=== PATIENT | female | born 1945 | race Caucasian/White ===

== ENCOUNTER 2017-10-04 11:23 | Emergency (ER) | payer MEDICARE, OTHER ==
[~2017-10-04] VITALS: Ht 152.4 cm; Wt 71.2 kg
[~2017-10-04 11:23] MED LIST: ADULT LOW DOSE81 MG PO; ASA5UEC PO; ASPIR 8181 MG PO; ASPIRIN EC81 M1 PO; ASPIRIN325 PO; ASPIRIN81 M2 PO; AZITHROMYCIN 2250 MG PO; BYSTOLIC 5 MG5 M1; CALCIUM 600 +1 EA11 PO; CARDIZEM CD180 MG PO; CO Q-10100 MG PO; CO Q-10200 MG PO; COQ-10100 MG; COZAAR 25 MG TA25 M2 PO; COZAAR 25 MG TA25 MG PO; CRESTOR10 MG PO; CRESTOR20 MG PO; DILTIAZEM HCL30 MG PO; EFFIENT10 MG PO; ELEMENTAL CALC600 MG PO; ELIQUIS5 MG PO; ENDUR-ACIN500 MG PO; FISH OIL 1,0001 EAC5 PO; FISH OIL 1,001000 M2 PO; FLEXERIL PO; FOLIC ACID 40400 MC1 PO; FOLIC ACID0.8 MG PO; IBUPROFEN; LORAZEPAM 0.50.5 MG PO; MEDROLDOSEPACK PO; MOTION RELIEF25 MG PO; MULTAQ 400 MG400 MG PO; MULTAQ400 MG PO; MULTI VITAMIN1 EACH PO; MULTIVITAMIN PO; MULTIVITAMINS; MULTIVITAMINS PO; NEURONTIN 300300 M1 PO; NIACIN500 MG PO; NITROGLYCERIN0.4 MG SL; NORCO 5-325 TA1 EACH PO; OMEGA-31000 MG; OMEPRAZOLE40 MG PO; ONDANSETRON HCL4 M2 PO; OXYCODONE HCL 55 MG PO; PERCOCET 5-3251 EACH PO; PLAVIX 75 MG TA75 M1 PO; PLAVIX 75 MG TA75 MG PO; PREDNISONE 20 M20 MG PO; PRILOSEC40 MG PO; PRINIVIL10 MG; TUMS E.S.750 MG PO; VALIUM5 MG PO; VENTOLIN HFA 1818 GM INH; VITAMIN D1000 UNI1 PO; VITAMIN D32000 UNI1 PO; VITAMIN D400 UNI1; ZOFRAN4 MG PO; ZPAK PO
[2017-10-04 12:08] LABS: ABSOLUTE LYMPHOCYTES 1.4 thou/uL (0.8-5.3); ABSOLUTE MONOCYTES 0.4 thou/uL (0.0-1.2); BASOPHILS 0.6 %; EOSINOPHILS 0.4 %; HEMATOCRIT 43.1 % (37.0-47.0); HEMOGLOBIN 14.4 gm/dL (12.0-15.0); LYMPHOCYTES 17.5 %; MCH 28.8 pg (26.0-34.0); MCHC 33.3 g/dL (28.0-37.0); MCV 86.6 fL (80.0-100.0); MPV 8.7 fl. (7.2-11.1); NUCLEATED RBCS 0 /100WBC; PLATELET COUNT* 167 thou/uL (150-400); POLYS 76.5 %; RBC 4.98 mil/uL (4.20-5.00); RDW-CV 14.1 % (10.5-14.5); WBC 7.8 thou/uL (4.0-11.0)
[2017-10-04 12:12] LABS: ANION GAP 7 mmol/L (7-16); BUN 16 mg/dL (7-18); CHLORIDE 103 mmol/L (98-107); CO2 30 mmol/L (21-32); CREATININE 0.8 mg/dL (0.6-1.3); GLUCOSE 106 mg/dL (70-99); POTASSIUM 3.7 mmol/L (3.5-5.1); SODIUM 140 mmol/L (136-145)
[2017-10-04 12:23] LABS: ALBUMIN 3.7 g/dL (3.4-5.0); ALKALINE PHOSPHATASE 94 U/L (46-116); LIPASE 156 U/L (73-393); NT-PRO BRAIN NAT PEPTIDE 167 pg/mL (<300); SGOT 27 U/L (15-37); SGPT 45 U/L (30-65); TOTAL BILIRUBIN 0.5 mg/dL (<0.1-1.0); TOTAL PROTEIN 7.4 g/dL (6.4-8.2); TROPONIN-I LEVEL <0.06 ng/mL (<0.06)
[2017-10-04 12:42] LABS: URINE BILIRUBIN NEGATIVE (Negative); URINE BLOOD NEGATIVE (Negative); URINE CLARITY CLEAR; URINE COLOR YELLOW; URINE GLUCOSE-RANDOM NEGATIVE (Negative); URINE KETONES NEGATIVE (Negative); URINE LEUKOCYTES-REFLEX NEGATIVE (Negative); URINE NITRITE-REFLEX NEGATIVE (Negative); URINE PROTEIN NEGATIVE (Negative); URINE SPECIFIC GRAVITY 1.015 (1.005-1.030); URINE UROBILINOGEN 0.2 E.U./dl (0.2-1.0)
[2017-10-04] MEDS ORDERED: VOLTAREN GEL 1100 G2 TOP (13:29)
[2017-10-04 13:48] VITALS: BP 109/50
--- NOTE | 2017-10-04 17:43 | EKG ---
[place] [address] ELECTROCARDIOGRAM REPORT Name: KRISTIE WHEELER Room: [facility]#: [id number] Admission: 10/04/17 Attend Phys: Discharge: 10/04/17 Date of : 49 Report #: [id number] THIS REPORT FOR: //name// [facility] ED Test Date: 2017-10-04 Test Time: 11:35:05 Pat Name: KRISTIE WHEELER Department: Room: Gender: F Conductor Orchestra: Eric ELLIOTT : 1945 Requested By: Allyson Perez Order Number: [id number] MD: Ronnie Solitario Measurements Intervals [place] Rate: 60 P: CA: 208 QRS: -42 QRSD: 96 T: 102 QT: 407 QTc: 407 Interpretive Statements Atrial-paced rhythm Inferior infarct, old Lateral leads are also involved Compared to ECG 06/04/2017 16:42:47 No significant changes Electronically Signed On 10-04-2017 17:43:34 ANALYTICAL CHEMIST by Ronnie Solitario [email or web address] <ELECTRONICALLY SIGNED> By: Ronnie Solitario MD, [facility] 10/04/17 1743 1135 1135 Ronnie Solitario MD, [facility] /EPI
== END 2017-10-04 13:49 | disposition home or self-care (01) ==
LOC: M.ERS 11:23
PROVIDERS: Physician Assistant
DX: R53.1 Weakness (principal); T40.4X5A Adverse effect of other synthetic narcotics, initial encounter; I10 Essential (primary) hypertension; I25.2 Old myocardial infarction; I48.91 Unspecified atrial fibrillation; Z95.0 Presence of cardiac pacemaker; Z90.710 Acquired absence of both cervix and uterus; Z95.5 Presence of coronary angioplasty implant and graft; Z88.5 Allergy status to narcotic agent; Z88.1 Allergy status to other antibiotic agents; Z91.013 Allergy to seafood; Z87.891 Personal history of nicotine dependence; Y92.89 Other specified places as the place of occurrence of the external cause

== ENCOUNTER 2018-01-06 09:56 | Emergency (ER) | payer MEDICARE, OTHER ==
[~2018-01-06] VITALS: Ht 152.4 cm; Wt 72.1 kg
[~2018-01-06 09:56] MED LIST changes: +VOLTAREN GEL 1100 G2 TOP
[2018-01-06 11:25] VITALS: BP 148/78
== END 2018-01-06 11:32 | disposition home or self-care (01) ==
LOC: M.ERS 09:56
DX: S46.811A Strain of other muscles, fascia and tendons at shoulder and upper arm level, right arm, initial encounter (principal); I10 Essential (primary) hypertension; I48.91 Unspecified atrial fibrillation; Z88.5 Allergy status to narcotic agent; Z88.1 Allergy status to other antibiotic agents; Z91.013 Allergy to seafood; Z87.891 Personal history of nicotine dependence; V43.62XA Car passenger injured in collision with other type car in traffic accident, initial encounter; Y93.89 Activity, other specified; Y92.89 Other specified places as the place of occurrence of the external cause; Y99.8 Other external cause status

== ENCOUNTER → 2018-03-26 | Outpatient (CLI) | payer MEDICARE, OTHER ==
[~2018-03-26] MED LIST changes: +LASIX 20 MG TAB20 MG PO; +POTASSIUM20 PO
== END ==
LOC: M.RAD 15:01
DX: Z12.31 Encounter for screening mammogram for malignant neoplasm of breast (principal); I10 Essential (primary) hypertension; I48.91 Unspecified atrial fibrillation; Z87.891 Personal history of nicotine dependence

== ENCOUNTER 2018-04-11 14:34 | Inpatient (IN) | payer MEDICARE, OTHER ==
[~2018-04-11] VITALS: Ht 152.4 cm; Wt 75.8 kg
[~2018-04-11 14:34] MED LIST changes: -LASIX 20 MG TAB20 MG PO; -POTASSIUM20 PO
[2018-04-11 14:41] VITALS: BP 138/48
[2018-04-11 15:04] LABS: ABSOLUTE BASOPHILS 0.1 thou/uL (0.0-0.2); ABSOLUTE EOSINOPHILS 0.1 thou/uL (0.0-0.7); ABSOLUTE LYMPHOCYTES 1.5 thou/uL (0.8-5.3); ABSOLUTE MONOCYTES 0.5 thou/uL (0.0-1.2); ABSOLUTE NEUTROPHILS 4.6 thou/uL (1.6-8.1); BASOPHILS 0.9 %; EOSINOPHILS 0.9 %; HEMATOCRIT 43.6 % (37.0-47.0); HEMOGLOBIN 14.5 gm/dL (12.0-15.0); LYMPHOCYTES 22.8 %; MCH 28.8 pg (26.0-34.0); MCHC 33.3 g/dL (28.0-37.0); MCV 86.5 fL (80.0-100.0); MONOCYTES 6.8 %; MPV 8.3 fl. (7.2-11.1); NUCLEATED RBCS 0 /100WBC; PLATELET COUNT* 172 thou/uL (150-400); POLYS 68.6 %; RBC 5.04 mil/uL (4.20-5.00); RDW-CV 13.6 % (10.5-14.5); WBC 6.7 thou/uL (4.0-11.0)
[2018-04-11 15:11] LABS: ANION GAP 7 mmol/L (7-16); BUN 11 mg/dL (7-18); CALCIUM 9.1 mg/dL (8.5-10.1); CHLORIDE 101 mmol/L (98-107); CO2 31 mmol/L (21-32); CREATININE 0.8 mg/dL (0.6-1.3); GLUCOSE 84 mg/dL (70-99); POTASSIUM 3.4 mmol/L (3.5-5.1); SODIUM 139 mmol/L (136-145)
[2018-04-11 15:15] LABS: URINE BILIRUBIN NEGATIVE (Negative); URINE BLOOD NEGATIVE (Negative); URINE CLARITY CLEAR; URINE COLOR YELLOW; URINE GLUCOSE-RANDOM NEGATIVE (Negative); URINE KETONES NEGATIVE (Negative); URINE LEUKOCYTES-REFLEX 1+ (Negative); URINE NITRITE-REFLEX NEGATIVE (Negative); URINE PROTEIN NEGATIVE (Negative); URINE SPECIFIC GRAVITY <= 1.005 (1.005-1.030); URINE UROBILINOGEN 0.2 E.U./dl (0.2-1.0)
[2018-04-11 15:18] LABS: ALKALINE PHOSPHATASE 104 U/L (46-116); LIPASE 181 U/L (73-393); SGOT 34 U/L (15-37); SGPT 48 U/L (30-65); TOTAL BILIRUBIN 0.6 mg/dL (<0.1-1.0); TOTAL PROTEIN 7.8 g/dL (6.4-8.2); TROPONIN-I LEVEL <0.06 ng/mL (<0.06)
[2018-04-11 15:56] LABS: BACTERIA-REFLEX None Seen /HPF (None Seen); CASTS None Seen /LPF (None Seen); CRYSTALS None Seen /LPF (None Seen); MUCUS None Seen strn/LPF (None Seen); SQUAMOUS 0-3 Few /LPF (0-3); TRANSITIONAL EPITHEL CELL 0-3 Few /LPF (None Seen); URINE RBC None Seen /HPF (0-2); URINE WBC-REFLEX 0-5 Rare /HPF (0-5)
[2018-04-11 17:15] VITALS: BP 122/70
[2018-04-11 17:33] VITALS: BP 142/65
[2018-04-11] MEDS ORDERED: POTASSIUM20 PO (18:14)
[2018-04-11] MEDS ORDERED: LASIX 20 MG TAB20 MG PO (18:14)
--- NOTE | 2018-04-11 18:29 | NUR ---
RECIEVIED REPORT FROM MACHELLE RN IN ER AT 1712- DX: CHEST PAIN/SHOULDER PAIN- PT ARRIVED TO UNIT VIA CART AT 1722- SBA TO BED- WASTE COLLECTION DRIVER PLACED ORDERED, TRACING A-PACED WITH 1ST DEGREE- PT A&O X4- CONTINENT OF BOWEL AND BLADDER- LCTA, RESP EVEN AND UN-LABORED- VS 97.7 18 142/65 60 94% ON RA- ABDOMEN SOFT/ROUND/NON-TENDER, BS X4 QUADS- PT REPORTS TO BE HAVING DIARRHEA PRIOR TO ADMISSION X4- IV NOTED TO LEFT AC INTACT AND SL- UPPER AND LOWER DENTURES NOTED- ADIQUITE VISION NOTED WITH GLASSES INTACT- SKIN C/D/I- GOOD PO INTAKE NOTED WITH DINNER THIS SHIFT- PT TO BE NPO FOR CARDIO CONSULT AT MIDNIGHT- TROP'S REMAIN NEGATIVE AT THIS TIME- PT DENIES ANY PAIN AT TIME OF ADMISSION, STATES THAT PAIN HAS BEEN RELIEVIED SINCE NITRO ADMINISTRATION IN ER PRIOR TO TRANSFER- CALL LIGHT AND PERSONAL BELONGINGS WITH IN REACH- HOURLY ROUNDS IN PLACE R/T SAFETY/NEEDS- ALL NEEDS MET AT THIS TIME-WCTM
[2018-04-11 20:00] VITALS: BP 121/66
[2018-04-12] VITALS (18 sets, daily range): BP systolic 102–137; BP diastolic 55–72
--- NOTE | 2018-04-12 02:49 | NUR ---
ASSUMED PT CARE AT 1930. ASSESSMENT COMPLETED CHARTED. HAS BEEN NPO SINCE MIDNIGHT FOR CARDIOLOGY CONSULT IN THE MORNING. PT STATES SHE HAS SOME SHOULDER PAIN AND IS REFUSING PAIN MEDICATION FOR IT STATING THAT IT IS JUST BOTHERSOME AND NO NEED TO TREAT RIGHT NOW. PT IS RESTING IN BED AT THIS TIME WITH SR ON THE DEHYDROGENATION OPERATOR. VSS. WILL CONTINUE TO MONITOR.
[2018-04-12 05:23] LABS: ABSOLUTE BASOPHILS 0.1 thou/uL (0.0-0.2); ABSOLUTE EOSINOPHILS 0.1 thou/uL (0.0-0.7); ABSOLUTE LYMPHOCYTES 1.7 thou/uL (0.8-5.3); ABSOLUTE MONOCYTES 0.5 thou/uL (0.0-1.2); ABSOLUTE NEUTROPHILS 3.1 thou/uL (1.6-8.1); EOSINOPHILS 2.1 %; HEMATOCRIT 43.1 % (37.0-47.0); HEMOGLOBIN 14.2 gm/dL (12.0-15.0); LYMPHOCYTES 30.8 %; MCH 28.8 pg (26.0-34.0); MCHC 32.9 g/dL (28.0-37.0); MCV 87.3 fL (80.0-100.0); MONOCYTES 9.2 %; MPV 8.9 fl. (7.2-11.1); NUCLEATED RBCS 0 /100WBC; PLATELET COUNT* 172 thou/uL (150-400); POLYS 56.9 %; RBC 4.93 mil/uL (4.20-5.00); RDW-CV 13.5 % (10.5-14.5); WBC 5.5 thou/uL (4.0-11.0)
[2018-04-12 06:13] LABS: CREATININE 0.8 mg/dL (0.6-1.3)
[2018-04-12 06:14] LABS: POTASSIUM 4.7 mmol/L (3.5-5.1)
--- NOTE | 2018-04-12 09:20 | NUR ---
ASSUMED CARE OF PT THIS AM AROUND 07- PLUGGER IN PLACE ORDERED, A-PACED WITH NOTED PACEMAKER- UPON ASSESSMENT PT NOTED TO BE RESTING IN BED, WATCHING TV, AT SIDE- PT A&O X4- CONTINENT OF BOWEL AND BLADDER- UP AD-KENNY IN ROOM, STEADY GAIT NOTED- LCTA, RESP EVEN AND UN-LABORED- VSS, O2 SAT 94% ON RA- NO C/O DYSPNEA NOTED- ABDOMEN SOFT/ROUND/NON-TENDER, BS X4 QUADS- LAST BM REPORTED 04/11/18 IN AM- NO REPORTS OF DIARRHEA/NAUSEA SINCE ADMISSION-PT CURRNELTY NPO PENDING CARDIOLOGY CONSULT-PT REPORTS PAIN TO RIGHT SHOULDER 12/05 THIS AM, BUT DENEIS NEED FOR PAIN MEDICATIONS AT THIS TIME- CALL LIGHT AND PERSONAL BELONGINGS WITH IN REACH- HOURLY ROUNDS IN PLACE R/T SAFETY/NEEDS- ALL NEEDS MET AT THIS TIME-WCTM
[2018-04-12 10:35] LABS: CHOLESTEROL 115 mg/dL (<200); HDL CHOLESTEROL 38 mg/dL (>40); LDL CHOLESTEROL 61 mg/dL (<100); TRIGLYCERIDE 84 mg/dL (<150); VLDL 17 mg/dL (<40)
[2018-04-12 10:37] LABS: SERUM ASSESSMENT Clear
[2018-04-12 10:40] LABS: APTT 30.8 Seconds (25.0-31.3); INR 1.2; PROTIME 11.3 Seconds (9.20-11.50)
--- NOTE | 2018-04-12 10:53 | EKG ---
[place] [address] ELECTROCARDIOGRAM REPORT Name: KRISTIE WHEELER Room: [address] M[address]R.#: [id number] Admission: 04/11/18 Attend Phys: Anuj Robledo MD Discharge: Date of : 49 Report #: [id number] THIS REPORT FOR: //name// [facility] ED Test Date: 2018-04-11 Test Time: 15:05:32 Pat Name: KRISTIE WHEELER Department: Room: [facility] Gender: F Brinell Tester: : 1945 Requested By: Jessica Sharp Order Number: [id number] MD: Ronnie Solitario Measurements Intervals [place] Rate: 60 P: SC: 179 QRS: -37 QRSD: 105 T: 88 QT: 476 QTc: 476 Interpretive Statements Atrial-paced complexes Abnormal R-wave progression, late transition consider Inferior infarct, old nonspecific st changes Compared to ECG 10/04/2017 11:35:05 no change Electronically Signed On 04-12-2018 10:53:21 CDT by Ronnie Solitario [email or web address] <ELECTRONICALLY SIGNED> By: Ronnie Solitario MD, [facility] 04/12/18 1053 1505 1505 Ronnie Solitario MD, [facility] /EPI
--- NOTE | 2018-04-12 14:23 | NUR ---
Pt is A&O. Resides at home with her . Independent. No DME. No hx of HH or SNF. Goal is home. Pt had cath today, anticipate dc tomorrow. Following.
--- NOTE | 2018-04-12 18:35 | NUR ---
PT VERONICA RESTING IN BED, WATCHING TV; AT SIDE VISITING- CATH COMPLETED THIS SHIFT PRESCIBED WITH NO INTERVENTIONS NOTED- ASSESS NOTED TO RIGHT WRIST WITH WRIST BAND IN PLACE WITH 10CC REPORTED- PT RETURNED FROM INSURANCE UNDERWRITER SALES AROUND 1353- VS 97.3 18 116/58 59 92% ON RA- VS PER PROTOCOL INITIATED IN COMPLETED PER PROTOCOL-DIET RESTARTED WITH GOOD PO INTAKE NOTED WITH DINNER- ORDERS RECIEVED PER FOR OKAY TO D/C TODAY IF OKAY WITH CARDIOLOGY- LACY CASE HERE THIS AFTERNOON WITH VERBAL INSTRUCTIONS RECIEVED FOR OKAY TO D/C PAST VS AND WRIST BAND REMOVAL THIS SHIFT- IV TO LEFT AC D/C'D AROUND 1745 ALONG WITH FLUIDS- SALES EXECUTIVE D/C WELL- VS REMAINED STABLE- UPON COMPLETION ON AIR REMOVED FROM WRIST BAND AND GOING TO REMOVE FOR DRESSING TO BE APPLIED AROUND 1815 WRIST NOTED TO DEVELOP HEMATOMA TO SITE, WRIST BAND REAPPLIED WITH 8CC OF AIR PLACED- CARDIOLOGY SERVICES CALLED FOR SALES ASSISTANT ENTERTAINMENT AND MEDIA TO RETURN PHONE CALL AROUND 1820-D/C VERONICA ON HOLD AWAITING RETURN PHONE CALL- ALL NEEDS MET AT THIS TIME- CALL LIGHT WITH IN REACH- ALL NEEDS MET AT THIS TIME-[facility]
[2018-04-13] VITALS: BP 105/64
[2018-04-13 04:00] VITALS: BP 113/68
[2018-04-13 04:56] LABS: HEMATOCRIT 44.7 % (37.0-47.0); HEMOGLOBIN 14.8 gm/dL (12.0-15.0)
[2018-04-13 08:15] VITALS: BP 109/58
--- NOTE | 2018-04-13 09:00 | NUR ---
RIGHT RADIAL SITE BRUISED AND SLIGHTLY SWOLLEN. PULSES +. NO BLEEDING. NO THRILL OR BRUIT
[2018-04-13 11:50] VITALS: BP 111/52
[2018-04-13 11:52] VITALS: BP 111/52
--- NOTE | 2018-04-13 17:42 | CARD ---
[address] [address] CARDIAC CATH REPORT Name: KRISTIE WHEELER Room: [address]#: [id number] Admission: 04/12/18 Attend Phys: Anuj Robledo MD Discharge: 04/13/18 Date of : 49 Report #: [id number] THIS REPORT FOR: //name// APPROVED REPORT Study performed: 04/12/2018 11:55:21 Patient Details Patient Status: Out-Patient Room #: The patient is a 72 year-old female Event Personnel Ghassan Mccabe Crusher Setter, Isi eDnt RN Medical Terminologist, David Stahl (R) Monitor, Yara Green RTR Scrub Procedures Performed Left heart catheterization and coronary angiography Indication Coronary artery disease with chest pain consistent with angina Risk Factors Dysplipidemia , Family History, Coronary Artery Disease Previous Procedures/Diagnoses Previous PCI Admission/Lab Medications/Medications given during procedure Aspirin, Lipid Lowering Agents, Beta Vineet Procedure Narrative The patient was brought electively to the Cardiac Catheterization Laboratory and was prepped and draped in a sterile manner. The right wrist was infiltrated with 1% Lidocaine subcutaneous anesthesia. A Slender Glidesheath sheath was inserted into the . Coronary angiography was performed using coronary diagnostic catheters. The right coronary system was accessed and visualized with a DCR: [place] 4.0 5fr catheter. The left coronary system was accessed and visualized with a LCB 5fr catheter. The left ventricle was accessed and visualized with a LCB 5fr catheter. The patient tolerated the procedure well and there were no complications associated with the procedure. [address] [address] CARDIAC CATH REPORT Name: KRISTIE WHEELER Room: [address]#: [id number] Admission: 04/12/18 Attend Phys: Anuj Robledo MD Discharge: 04/13/18 Date of : 49 Report #: [id number] Intraoperative Conscious Sedation Sedation start time: 1245 Case end Time: 1336 Fentanyl 50 mcg Versed 2 mg Fluoro Time: 22.6 minutes Dose: DAP [id number] cGycm2 2151 mGy Contrast Type and Amount: Omnipaque 130 ml Diagnostic Cath Left Main 20% ostial narrowing. Remainder the vessel is free of significant disease LAD Proximally free of significant disease. Stents in the mid LAD are widely patent. Diagonal 1 10% plaquing proximally. Circumflex Widely patent stents in the proximal and mid circumflex. OM1 Alecia branch vessel that is free of significant disease. OM2 Previous significant disease. Right Coronary 30% narrowing proximally. Mid vessel is free of significant disease. There is a 20% narrowing distally. R PDA 30% narrowing proximally. There is a widely patent stent in the mid vessel. RPLV Previous significant disease. Hemodynamics The aortic pressure is 80/45 mmHg with a mean of 55 mmHg. The left ventricular pressure is 117/5 mmHg with a mean of mmHg. The left ventricular end diastolic pressure is 10 mmHg. Conclusion 1. Three-vessel coronary artery disease as outlined above. 2. Widely patent stents as outlined above. 3. No hemodynamically significant stenoses noted at this time. 4. Normal left ventricular end-diastolic pressure. Recommendations 1. Continue aggressive risk factor modification and medical management. <ELECTRONICALLY SIGNED> By: Ghassan Mccabe MD, FACC 04/13/181741 41 41Michaefacundo Mccabe MD, FACC /INF
== END 2018-04-13 14:09 | disposition home or self-care (01) | DRG 287 ==
LOC: M.ERS 14:34 → M.2W 16:21 → M.TBA-ER 16:21 → M.2W 17:25
PROVIDERS: Internal Medicine Cardiovascular Disease; Nurse Practitioner Family; ADMIT Internal Medicine
PROC: 4A023N7 Measurement of Cardiac Sampling and Pressure, Left Heart, Percutaneous Approach (ICD-10-PCS; principal; 2018-04-13)
PROC: B2111ZZ Fluoroscopy of Multiple Coronary Arteries using Low Osmolar Contrast (ICD-10-PCS; principal; 2018-04-13)
DX: I25.119 Atherosclerotic heart disease of native coronary artery with unspecified angina pectoris (principal); E78.1 Pure hyperglyceridemia; I10 Essential (primary) hypertension; M19.90 Unspecified osteoarthritis, unspecified site; I48.0 Paroxysmal atrial fibrillation; I49.5 Sick sinus syndrome; K21.9 Gastro-esophageal reflux disease without esophagitis; E78.5 Hyperlipidemia, unspecified; I25.2 Old myocardial infarction; Z95.5 Presence of coronary angioplasty implant and graft; Z95.0 Presence of cardiac pacemaker; Z90.49 Acquired absence of other specified parts of digestive tract; Z90.710 Acquired absence of both cervix and uterus; Z87.891 Personal history of nicotine dependence; Z79.01 Long term (current) use of anticoagulants; Z79.82 Long term (current) use of aspirin; Z79.899 Other long term (current) drug therapy; Z88.8 Allergy status to other drugs, medicaments and biological substances; Z88.1 Allergy status to other antibiotic agents; Z88.5 Allergy status to narcotic agent; Z91.013 Allergy to seafood

== ENCOUNTER → 2018-05-23 | Outpatient (CLI) | payer MEDICARE, OTHER ==
[~2018-05-23] MED LIST changes: +LASIX 20 MG TAB20 MG PO; +POTASSIUM20 PO
--- NOTE | 2018-05-24 18:13 | SLEEP ---
[address] [address] SLEEP STUDY REPORT Name: KRISTIE WHEELER Room: [facility]#: [id number] Admission: 05/23/18 Attend Phys: Cici Brock Discharge: Date of : 49 Report #: [id number] THIS REPORT FOR: //name// CC: SHAUNA Weber This study has been reviewed in its entirety by a board certified sleep specialist DATE OF SERVICE: 05/23/2018 ATTENDING PHYSICIAN: Shauna Licona DO. The patient is 72 years old who weighs 161 pounds and is 60 inches tall with a BMI of 31.4. The patient underwent a split night study performed at [facility]. During the night study, the patient spent 443 minutes in bed and slept for 241 minutes with a sleep efficiency of 54%, which is low. Overall, sleep architecture showed normal stage 1 sleep as well as normal stage 2 sleep, increased slow wave sleep, which was 30% of the total sleep time and normal REM sleep. The patient's sleep latency was 42 minutes, which was prolonged with a REM latency of 99.4 minutes. During the initial diagnostic portion of the study, the patient slept for 137 minutes. During that time, the patient had no central or mixed apneas. There were 4 obstructive apneas and 26 hypopneas. The patient's apnea hypopnea index was 13 per hour with a REM index of 54 per hour and a supine index of 13 per hour. EKG monitoring revealed normal sinus rhythm. Average heart rate of 70 beats per minute with a maximum of 77 beats per minute. PLMS seen at an index of 9.2 per hour and 5.7 per hour caused EEG arousals. During the night, diagnostic portion of the study, oximetry data revealed an average oxygen saturation of 89% with a lowest of 75%. 47 minutes were spent at oxygen saturation less than 88%. The patient met the criteria for CPAP initiation. It was started at 4 cm water and titrated up to 14 cm water. At final pressure of 14 cm water, the patient had very limited sleep of only 3.3 minutes. As a result, there were 2 hypopneas, which exaggerated the AHI to 36 per hour. The patient did better while on CPAP, at 7 cm water, the patient had 41 minutes of sleep , [place] [address] SLEEP STUDY REPORT Name: NEETU WHEELEREpifanio Paul Room: [facility]#: [id number] Admission: 05/23/18 Attend Phys: Cici Brock Discharge: Date of : 49 Report #: [id number] sleep as well and AHI was 4.3 per hour. No supine sleep. However, it is difficult to assess optimum CPAP pressure due to a limited time with CPAP titration and specially when higher CPAP pressures were used. . I would recommend the patient to return to the sleep lab for CPAP titration study. Alternate treatment option would be to place the patient on auto CPAP and have a followup with a download information. IMPRESSION: 1. Mild sleep apnea-hypopnea syndrome with worsening during REM sleep. Total AHI at 13 per hour with a REM AHI of 54 per hour. 2. Nocturnal hypoxia secondary to obstructive sleep apnea, which did improve with CPAP. 3. Mild PLMS at an index of 9 per hour and 5.7 per hour caused EEG arousals. RECOMMENDATIONS: 1. Optimum CPAP pressure was not achieved on this split night study due to insufficient sleep. The patient can be placed on auto CPAP with a minimum pressure of 7 cm water and the maximum pressure of 16 cm water. The patient can have download information in 30 days and any adjustments can be made at that time. Alternate treatment option would be to have the patient return to the sleep lab for a full night CPAP titration study. 2. Avoid BANKRUPTCY PARALEGAL depressants. 3. Cautioned regarding driving until symptoms of sleep apnea resolve with the above recommendations. 4. Weight loss is advised. <ELECTRONICALLY SIGNED> By: Maurilio Healy MD 05/24/18 1813 1457 1538Alarry Healy MD /yasmin
== END ==
LOC: M.SLEEPLAB 19:54
DX: G47.33 Obstructive sleep apnea (adult) (pediatric) (principal); R09.02 Hypoxemia

== ENCOUNTER 2018-08-02 19:37 | Emergency (ER) | payer MEDICARE, OTHER ==
[~2018-08-02] VITALS: Ht 152.4 cm; Wt 72.6 kg
[2018-08-02 20:04] LABS: URINE BILIRUBIN NEGATIVE (Negative); URINE BLOOD NEGATIVE (Negative); URINE CLARITY CLEAR; URINE COLOR YELLOW; URINE GLUCOSE-RANDOM NEGATIVE (Negative); URINE KETONES NEGATIVE (Negative); URINE LEUKOCYTES-REFLEX NEGATIVE (Negative); URINE NITRITE-REFLEX NEGATIVE (Negative); URINE PROTEIN NEGATIVE (Negative); URINE SPECIFIC GRAVITY <= 1.005 (1.005-1.030); URINE UROBILINOGEN 0.2 E.U./dl (0.2-1.0)
[2018-08-02] MEDS ORDERED: PREDNISONE 20 M20 MG PO (20:14)
[2018-08-02] MEDS ORDERED: NORCO 5-325 TA1 EACH PO (20:15)
[2018-08-02 20:43] VITALS: BP 155/74
== END 2018-08-02 20:44 | disposition home or self-care (01) ==
LOC: M.ERS 19:37
PROVIDERS: Physician Assistant
DX: M54.5 Low back pain (principal); I48.91 Unspecified atrial fibrillation; I10 Essential (primary) hypertension; Z87.891 Personal history of nicotine dependence; Z88.1 Allergy status to other antibiotic agents; Z88.5 Allergy status to narcotic agent; Z88.6 Allergy status to analgesic agent; Z91.013 Allergy to seafood; Z90.710 Acquired absence of both cervix and uterus; Z95.5 Presence of coronary angioplasty implant and graft

== ENCOUNTER 2018-11-06 17:42 | Emergency (ER) | payer MEDICARE, OTHER ==
[~2018-11-06] VITALS: Ht 152.4 cm; Wt 72.6 kg
[~2018-11-06 17:42] MED LIST changes: -ACID REDUCER20 M1 PO; -CARDIZEM CD120 MG PO; -COZAAR 25 MG TA25 M1 PO; -ERYTHROMYCIN E3.5 G3 OPHTHALMIC; -FOLIC ACID1 MG PO; -NITROGLYCERIN0.4 MG SUBLING; -UNICOMPLEX M TA1 TA1 PO; -VITAMIN D3400 UNIT PO
[2018-11-06 17:48] VITALS: BP 143/61
[2018-11-06] MEDS ORDERED: ERYTHROMYCIN E3.5 G3 OPHTHALMIC ×3 (17:57→20:11)
[2018-11-06] MEDS ORDERED: ASPIR 8181 MG PO (18:41)
[2018-11-06] MEDS ORDERED: CARDIZEM CD120 MG PO (18:41)
[2018-11-06] MEDS ORDERED: ELIQUIS5 MG PO (18:41)
[2018-11-06] MEDS ORDERED: CO Q-10100 MG PO (18:41)
[2018-11-06] MEDS ORDERED: MULTAQ 400 MG400 MG PO (18:42)
[2018-11-06] MEDS ORDERED: FOLIC ACID1 MG PO (18:42)
[2018-11-06] MEDS ORDERED: FISH OIL 1,001000 M2 PO (18:42)
[2018-11-06] MEDS ORDERED: COZAAR 25 MG TA25 M1 PO (18:43)
[2018-11-06] MEDS ORDERED: NITROGLYCERIN0.4 MG SUBLING (18:43)
[2018-11-06] MEDS ORDERED: LASIX 20 MG TAB20 MG PO (18:43)
[2018-11-06] MEDS ORDERED: UNICOMPLEX M TA1 TA1 PO (18:43)
[2018-11-06] MEDS ORDERED: ACID REDUCER20 M1 PO (18:44)
[2018-11-06] MEDS ORDERED: POTASSIUM20 PO (18:44)
[2018-11-06] MEDS ORDERED: VITAMIN D3400 UNIT PO (18:45)
[2018-11-06] MEDS ORDERED: CRESTOR20 MG PO (18:45)
== END 2018-11-06 18:18 | disposition home or self-care (01) ==
LOC: M.ERS 17:42
DX: S05.02XA Injury of conjunctiva and corneal abrasion without foreign body, left eye, initial encounter (principal); I10 Essential (primary) hypertension; I48.91 Unspecified atrial fibrillation; Z87.891 Personal history of nicotine dependence; Z88.1 Allergy status to other antibiotic agents; Z88.5 Allergy status to narcotic agent; Z91.013 Allergy to seafood; Z90.710 Acquired absence of both cervix and uterus; Z95.5 Presence of coronary angioplasty implant and graft; X58.XXXA Exposure to other specified factors, initial encounter; Y93.89 Activity, other specified; Y92.89 Other specified places as the place of occurrence of the external cause; Y99.8 Other external cause status

== ENCOUNTER → 2018-11-06 | Outpatient (CLI) | payer MEDICARE, OTHER ==
[~2018-11-06] MED LIST changes: +ACID REDUCER20 M1 PO; +CARDIZEM CD120 MG PO; +COZAAR 25 MG TA25 M1 PO; +ERYTHROMYCIN E3.5 G3 OPHTHALMIC; +FOLIC ACID1 MG PO; +NITROGLYCERIN0.4 MG SUBLING; +UNICOMPLEX M TA1 TA1 PO; +VITAMIN D3400 UNIT PO
== END ==
LOC: M.MRI 07:48
DX: S76.012A Strain of muscle, fascia and tendon of left hip, initial encounter (principal); X58.XXXA Exposure to other specified factors, initial encounter; Y93.89 Activity, other specified; Y92.89 Other specified places as the place of occurrence of the external cause; Y99.8 Other external cause status; Z90.710 Acquired absence of both cervix and uterus

== ENCOUNTER 2018-11-29 05:10 | Emergency (ER) | payer MEDICARE, OTHER ==
[~2018-11-29] VITALS: Ht 152.4 cm; Wt 72.6 kg
--- NOTE | ~2018-11-29 | CON ---
[address] [address] CONSULTATION Name: NEETU WHEELERN BARRERA Room: [facility] Joann#: [id number] Admission: 11/29/18 Attend Phys: Discharge: 11/29/18 Date of : 49 Report #: [id number] THIS REPORT FOR: //name// CC: Sal Carty HISTORY OF PRESENT ILLNESS: This is a pleasant 73-year-old female with past medical history significant for hyperlipidemia, hypertension, AFib, coronary artery disease, who is presenting for evaluation of acute onset dysphagia. The patient attempted to swallow all her pills today in the morning, but appears to have had the pill stuck in her throat. The patient denies any difficulty breathing and denies similar episodes in the past. She denies any pain on swallowing, recent hematemesis, hematochezia or weight loss. PAST MEDICAL HISTORY: As mentioned above, hyperlipidemia, coronary artery disease, atrial fibrillation, and hypertension. PAST SURGICAL HISTORY: Hysterectomy 12 years back, cholecystectomy 40 years back. SOCIAL HISTORY: The patient denies smoking, alcohol or recreational drug use. FAMILY HISTORY: Negative for colon or gastric or esophageal cancer. REVIEW OF SYSTEMS: Negative except for what was mentioned in the HPI. PHYSICAL EXAMINATION: VITAL SIGNS: Temperature 36.6, pulse rate 61, respirations 16, blood pressure 104/66, pulse ox 97. GENERAL: The patient is alert, awake, oriented x 3. HEENT: Pupils are equal, round, reactive to light and accommodation. Mucous membranes are moist. NECK: There is no congestion. LUNGS: Clear to auscultation bilaterally. CARDIOVASCULAR: Rate and rhythm irregular; S1, S2 absent. ABDOMEN: Soft. There is no distention, guarding or rigidity. EXTREMITIES: Warm, well perfused. There is no edema. SKIN: Warm and dry. LABORATORY DATA: Hemoglobin 14.3, hematocrit 43.1, platelet count 156. WBC count 5.4. Sodium 141, potassium 4.3, chloride 104, bicarbonate 13, creatinine 0.9, total bilirubin 0.6, AST 32, ALT 42, alkaline phosphatase 105. ASSESSMENT AND PLAN: Pleasant 73-year-old female with past medical history of atrial fibrillation, hypertension, hyperlipidemia, is presenting for evaluation of acute onset dysphagia and food impaction. I will perform [place] [address] CONSULTATION Name: KRISTIE WHEELER Room: [facility] Joann#: [id number] Admission: 11/29/18 Attend Phys: Discharge: 11/29/18 Date of : 49 Report #: [id number] cause of this and further recommendations will be based on the results of the EGD. Thank you for this consult. By: 1511 0612Magnus Carty MD /yamsin
[~2018-11-29 05:10] MED LIST changes: +ACID REDUCER20 M1 PO; +CARDIZEM CD120 MG PO; +COZAAR 25 MG TA25 M1 PO; +ERYTHROMYCIN E3.5 G3 OPHTHALMIC; +FOLIC ACID1 MG PO; +NITROGLYCERIN0.4 MG SUBLING; +UNICOMPLEX M TA1 TA1 PO; +VITAMIN D3400 UNIT PO
[2018-11-29] MEDS ORDERED: NEURONTIN 300300 M1 PO (05:18)
[2018-11-29 05:43] LABS: ABSOLUTE BASOPHILS 0.1 thou/uL (0.0-0.2); ABSOLUTE EOSINOPHILS 0.1 thou/uL (0.0-0.7); ABSOLUTE LYMPHOCYTES 1.5 thou/uL (0.8-5.3); ABSOLUTE MONOCYTES 0.4 thou/uL (0.0-1.2); ABSOLUTE NEUTROPHILS 3.4 thou/uL (1.6-8.1); BASOPHILS 1.1 %; HEMATOCRIT 43.1 % (37.0-47.0); HEMOGLOBIN 14.3 gm/dL (12.0-15.0); LYMPHOCYTES 27.1 %; MCH 29.1 pg (26.0-34.0); MCHC 33.3 g/dL (28.0-37.0); MCV 87.4 fL (80.0-100.0); MONOCYTES 6.8 %; MPV 8.5 fl. (7.2-11.1); NUCLEATED RBCS 0 /100WBC; PLATELET COUNT* 156 thou/uL (150-400); RBC 4.93 mil/uL (4.20-5.00); RDW-CV 14.3 % (10.5-14.5); WBC 5.4 thou/uL (4.0-11.0)
[2018-11-29 05:53] LABS: APTT 28.4 Seconds (25.0-31.3); INR 1.1; PROTIME 10.9 Seconds (9.20-11.50)
[2018-11-29 05:56] LABS: ALBUMIN 3.7 g/dL (3.4-5.0); CALCIUM 9.3 mg/dL (8.5-10.1); CREATININE 0.9 mg/dL (0.6-1.3); POTASSIUM 4.3 mmol/L (3.5-5.1); TOTAL BILIRUBIN 0.6 mg/dL (<0.1-1.0); TOTAL PROTEIN 7.5 g/dL (6.4-8.2)
[2018-11-29 11:23] VITALS: BP 104/66
== END 2018-11-29 11:25 | disposition still patient (30) ==
LOC: M.ERS 05:10 → M.SUR 05:10 → M.ERS 11:25
PROVIDERS: Family Medicine
DX: T18.198A Other foreign object in esophagus causing other injury, initial encounter (principal); R11.10 Vomiting, unspecified; I48.91 Unspecified atrial fibrillation; Z90.710 Acquired absence of both cervix and uterus; Z95.5 Presence of coronary angioplasty implant and graft; Z88.5 Allergy status to narcotic agent; Z88.1 Allergy status to other antibiotic agents; Z91.013 Allergy to seafood; Z87.891 Personal history of nicotine dependence; X58.XXXA Exposure to other specified factors, initial encounter; Y93.89 Activity, other specified; Y92.89 Other specified places as the place of occurrence of the external cause; Y99.8 Other external cause status

== ENCOUNTER → 2019-01-09 | Outpatient (CLI) | payer MEDICARE, OTHER | LOC: M.MRI 12:55 | DX: M47.27 Other spondylosis with radiculopathy, lumbosacral region (principal); M51.16 Intervertebral disc disorders with radiculopathy, lumbar region; M48.061 Spinal stenosis, lumbar region without neurogenic claudication; M25.78 Osteophyte, vertebrae; N28.1 Cyst of kidney, acquired ==

== ENCOUNTER → 2019-06-13 | Outpatient (CLI) | payer MEDICARE, OTHER | LOC: M.RAD 13:31 | DX: Z12.31 Encounter for screening mammogram for malignant neoplasm of breast (principal) ==

== ENCOUNTER → 2019-07-15 | Outpatient (CLI) | payer MEDICARE, OTHER | LOC: M.LAB 13:28 | DX: I48.0 Paroxysmal atrial fibrillation (principal) ==

== ENCOUNTER → 2019-07-22 | Outpatient (CLI) | payer MEDICARE, OTHER ==
--- NOTE | 2019-07-22 15:00 | 2DMMODE ---
[place] [address] 2 D/M-MODE ECHOCARDIOGRAM Name: KRISTIE WHEELER Room: [facility]#: [id number] Admission: 07/22/19 Attend Phys: Palak Perez Discharge: Date of : 49 Date of Service: 07/22/19 1459 Report #: [id number] THIS REPORT FOR: //name// APPROVED REPORT Study performed: 07/22/2019 14:04:40 EXAM: Comprehensive 2D, Doppler, and color-flow Echocardiogram Patient Location: Out-Patient BSA: 1.69 HR: 61 bpm BP: 120/60 mmHg Other Information Study Quality: Good Indications Atrial Fibrillation 2D Dimensions IVSd: 11.70 (7-11mm) LVOT Diam: 20.34 (18-24mm) LVDd: 45.14 mm PWd: 9.14 (7-11mm) Ascending Ao: 30.22 (22-36mm) LVDs: 24.05 (25-40mm) Aortic Root: 29.71 mm Volumes Left Atrial Volume (Systole) LA ESV Index: 23.60 mL/m2 Aortic Valve AoV Peak Tao.: 1.16 m/s AO Peak Gr.: 5.39 mmHg LVOT Max P.36 mmHg AO Mean Gr.: 2.82 mmHg LVOT Mean P.26 mmHg LVOT Max V: 0.77 m/s AO V2 VTI: 25.65 cm LVOT Mean V: 0.53 m/s RYDER (VTI): 2.50 cm2 LVOT V1 VTI: 19.74 cm Mitral Valve E/A Ratio: 0.88 MV Decel. Time: 196.83 ms MV E Max Tao.: 0.52 m/s MV PHT: 57.08 ms MVA (PHT): 3.85 [place]2 [place] [address] 2 D/M-MODE ECHOCARDIOGRAM Name: KRISTIE WHEELER Room: [facility]#: [id number] Admission: 07/22/19 Attend Phys: Palak Perez Discharge: Date of : 49 Date of Service: 07/22/19 1459 Report #: [id number] TDI E/Lateral E': 4.73 E/Medial E': 5.78 Medial E' Tao.: 0.09 m/s Lateral E' Tao.: 0.11 m/s Pulmonary Valve PV Peak Tao.: 0.83 m/s PV Peak Gr.: 2.76 mmHg Tricuspid Valve RAP Estimate: 5.00 mmHg TR Peak Gr.: 29.18 mmHg RVSP: 34.18 mmHg PA Pressure: 34.18 mmHg Left Ventricle The left ventricle is normal size. There is normal LV segmental wall motion. There is normal left ventricular wall thickness. Left ventricular systolic function is normal. The left ventricular ejection fraction is within the normal range. LVEF is 55-60%. Grade I - abnormal relaxation pattern. Right Ventricle The right ventricle is normal size. The right ventricular systolic function is normal. Pacemaker lead is present in the right ventricle. Atria The left atrium size is normal. Pacemaker lead is present in the right atrium. Aortic Valve The Aortic valve is sclerotic. No aortic regurgitation is present. There is no aortic valvular stenosis. Mitral Valve The mitral valve is normal in structure. Mild mitral regurgitation. No evidence of mitral valve stenosis. Tricuspid Valve The tricuspid valve is normal in structure. Mild tricuspid regurgitation. estimated pa pressure 40 mm Hg Pulmonic Valve The pulmonary valve is normal in structure. There is no pulmonic valvular regurgitation[place] [address] 2 D/M-MODE ECHOCARDIOGRAM Name: KRISTIE WHEELER Room: [facility]#: [id number] Admission: 07/22/19 Attend Phys: Palak Perez Discharge: Date of : 49 Date of Service: 07/22/19 1459 Report #: [id number] The aortic root is normal in size. IVC is normal in size and collapses >50% with inspiration. Pericardium There is no pericardial effusion. <Conclusion> LVEF is 55-60%. The Aortic valve is sclerotic. <ELECTRONICALLY SIGNED> By: Ronnie Solitario MD, [facility] 07/22/19 1459 145 145 Ronnie Solitario MD, FACC /INF
== END ==
LOC: M.CRD 13:35
DX: I08.1 Rheumatic disorders of both mitral and tricuspid valves (principal); I48.0 Paroxysmal atrial fibrillation

== ENCOUNTER → 2019-08-02 | Outpatient (CLI) | payer MEDICARE, OTHER ==
[2019-08-02 10:19] LABS: HEMATOCRIT 46.5 % (37.0-47.0); HEMOGLOBIN 15.6 gm/dL (12.0-15.0); MCH 28.6 pg (26.0-34.0); MCHC 33.5 g/dL (28.0-37.0); MCV 85.2 fL (80.0-100.0); MPV 8.3 fl. (7.2-11.1); RBC 5.46 mil/uL (4.20-5.00); RDW-CV 14.7 % (10.5-14.5); WBC 6.4 thou/uL (4.0-11.0)
[2019-08-02 10:38] LABS: ALBUMIN 4.1 g/dL (3.4-5.0); CALCIUM 9.8 mg/dL (8.5-10.1); CREATININE 0.8 mg/dL (0.6-1.3); POTASSIUM 4.5 mmol/L (3.5-5.1); TOTAL BILIRUBIN 0.7 mg/dL (<0.1-1.0); TOTAL PROTEIN 8.1 g/dL (6.4-8.2)
== END ==
LOC: M.LAB 07-31 16:55
PROVIDERS: Internal Medicine Cardiovascular Disease
DX: J98.11 Atelectasis (principal); I48.91 Unspecified atrial fibrillation; I25.10 Atherosclerotic heart disease of native coronary artery without angina pectoris; I11.9 Hypertensive heart disease without heart failure

== ENCOUNTER → 2019-08-15 | Outpatient (CLI) | payer MEDICARE, OTHER ==
[2019-08-15 09:44] VITALS: BP 145/72
[2019-08-15 09:49] VITALS: BP 149/74
[2019-08-15 09:54] VITALS: BP 164/74
[2019-08-15 09:57] VITALS: BP 139/76
[2019-08-15 10:01] VITALS: BP 133/64
--- NOTE | 2019-08-15 12:43 | TEE ---
[place] [address] TRANSESOPHAGEAL ECHOCARDIOGRAM Name: SUMMERKRISTIE L Room: [facility]#: [id number] Admission: 08/15/19 Attend Phys: Ghassan Mccabe, Discharge: Date of : 49 Date of Service: 08/15/19 1243 Report #: [id number] THIS REPORT FOR: //name// APPROVED REPORT Study performed: 08/15/2019 09:34:07 EXAM: Comprehensive 2D, Doppler, and color-flow Echocardiogram Patient Location: Out-Patient Status: routine BSA: 1.70 HR: 66 bpm BP: 135/81 mmHg Rhythm: Atrial Fibrillation Other Information Study Quality: Good Indications Atrial Fibrillation Pre-ablation Echo Enhancing Agent Indication: Rule out Shunt Agent(s) / Amount(s) Used: Agitated Saline 10 cc Procedure After obtaining informed consent, patient underwent transesophageal echo in the [employer]. Type of Sedation : Conscious Sedation Sedation was administered by Karina Kingston RN. Sedation start time: 950 Case end Time: 1001 Sedation was achieved intravenously with: Versed (3) Fentanyl (75) Transesophageal probe was inserted and advanced into esophagus without difficulty by Ghassan Mccabe MD, FACC. Echo enhancement indication: R/O Septal defect. Echo enhancement agent administered: Agitated Saline The CHANDANA was performed without complications. Throughout the procedure, the blood pressure, pulse oximetry, cardiac rhythm, and rate were monitored. The patient tolerated the procedure without adverse effects. Recovery from conscious sedation was uneventful [place] [address] TRANSESOPHAGEAL ECHOCARDIOGRAM Name: KRISTIE WHEELER Room: [facility]#: [id number] Admission: 08/15/19 Attend Phys: Ghassan Mccabe, Discharge: Date of : 49 Date of Service: 08/15/19 1243 Report #: [id number] Left Ventricle The left ventricle is normal size. There is normal LV segmental wall motion. There is normal left ventricular wall thickness. Left ventricular systolic function is normal. LVEF is 65-70%. Right Ventricle The right ventricle is normal size. The right ventricular systolic function is normal. Pacemaker lead is present in the right ventricle. Atria The left atrium size is normal. No thrombus is visualized in the left atrium or appendage. Interatrial septum is intact without evidence of ASD or PFO. The right atrium size is normal. Aortic Valve The aortic valve is normal in structure. No aortic regurgitation is present. There is no aortic valvular stenosis. Mitral Valve The mitral valve is normal in structure. Mild mitral regurgitation. No evidence of mitral valve stenosis. Tricuspid Valve The tricuspid valve is normal in structure. Mild tricuspid regurgitation. Pulmonic Valve Pulmonic valve is not well visualized. Great Vessels The aortic root is normal in size. Pericardium There is no pericardial effusion. <Conclusion> The left ventricle is normal size. There is normal left ventricular wall thickness. Left ventricular systolic function is normal. LVEF is 65-70%. The left atrium size is normal. No thrombus is visualized in the left atrium or appendage. Pacemaker lead is present in the right ventricle. Interatrial septum is intact without evidence [place] [address] TRANSESOPHAGEAL ECHOCARDIOGRAM Name: SUMMER,KRISTIE L Room: [facility]#: [id number] Admission: 08/15/19 Attend Phys: Ghassan Mccabe, Discharge: Date of : 49 Date of Service: 08/15/191242 Report #: [id number] Mild mitral regurgitation. Mild tricuspid regurgitation. <ELECTRONICALLY SIGNED> By: Ghassan Mccabe MD, FACC 08/15/19 1243 42 42 Ghassan Mccabe MD, FACC /INF
== END | disposition home or self-care (01) ==
LOC: M.CL 09:18
DX: I48.91 Unspecified atrial fibrillation (principal); I08.1 Rheumatic disorders of both mitral and tricuspid valves; Z98.890 Other specified postprocedural states; Z79.899 Other long term (current) drug therapy; Z95.0 Presence of cardiac pacemaker; Z88.8 Allergy status to other drugs, medicaments and biological substances; Z79.01 Long term (current) use of anticoagulants; Z79.82 Long term (current) use of aspirin

== ENCOUNTER → 2019-11-06 | Outpatient (CLI) | payer MEDICARE, OTHER ==
[2019-11-06 11:59] LABS: CHOLESTEROL 105 mg/dL (<200); HDL CHOLESTEROL 30 mg/dL (>40); LDL CHOLESTEROL 53 mg/dL (<100); SERUM ASSESSMENT Clear; TC:HDL 3.5 Ratio (Not establshd); TRIGLYCERIDE 110 mg/dL (<150); VLDL 22 mg/dL (<40)
== END ==
LOC: M.LAB 10:57
PROVIDERS: Internal Medicine Cardiovascular Disease
DX: E78.00 Pure hypercholesterolemia, unspecified (principal)

== ENCOUNTER → 2020-05-25 | Outpatient (CLI) | payer MEDICARE, OTHER | LOC: M.LAB 02:05 | PROVIDERS: ATTEND Anesthesiology | DX: E87.6 Hypokalemia (principal) ==

== ENCOUNTER → 2020-07-02 | Outpatient (CLI) | payer MEDICARE, OTHER | LOC: M.RAD 10:25 | PROVIDERS: ATTEND Nurse Practitioner Family | DX: Z12.31 Encounter for screening mammogram for malignant neoplasm of breast (principal) ==

== ENCOUNTER → 2020-09-24 | Outpatient (CLI) | payer MEDICARE, OTHER | LOC: M.ULTRA 08:47 | PROVIDERS: ATTEND Family Medicine | DX: M79.89 Other specified soft tissue disorders (principal) ==

== ENCOUNTER → 2021-05-20 | Outpatient (CLI) | payer MEDICARE, OTHER | LOC: M.ULTRA 14:25 | PROVIDERS: ATTEND Internal Medicine Cardiovascular Disease | DX: I65.23 Occlusion and stenosis of bilateral carotid arteries (principal) ==

== ENCOUNTER → 2021-07-05 | Outpatient (CLI) | payer MEDICARE, OTHER | LOC: M.RAD 09:31 | PROVIDERS: ATTEND Family Medicine | DX: Z12.31 Encounter for screening mammogram for malignant neoplasm of breast (principal) ==

== ENCOUNTER 2021-09-23 08:45 | Observation (INO) | payer MEDICARE, OTHER ==
[~2021-09-23] VITALS: Ht 152.4 cm; Wt 73.9 kg
[2021-09-23 08:55] VITALS: BP 157/86
--- NOTE | 2021-09-23 11:19 | EKG ---
[place] [address] ELECTROCARDIOGRAM REPORT Name: SUMMERKRISTIE BARRERA Room: [facility]#: [id number] Admission: 09/23/21 Attend Phys: Discharge: Date of : 49 Date of Service: 09/23/21 0858 Report #: [id number] THIS REPORT FOR: //name// [facility] ED Test Date: 2021-09-23 Test Time: 08:58:25 Pat Name: KRISTIE WHEELER Department: Room: Gender: Digital Account Supervisor: : 1945 Requested By: Lenard Jefferson Order Number: [id number] MD: Juan R Grubbs Measurements Intervals [place] Rate: 74 P: MD: 305 QRS: 253 QRSD: 106 T: 78 QT: 421 QTc: 467 Interpretive Statements Atrial-paced rhythm FIRST DEGREE AV BLOCK Inferior infarct, old Consider anterior infarct old Compared to ECG 04/11/2018 15:05:32 ST (T wave) deviation no longer present Myocardial infarct finding still present Electronically Signed On 09-23-2021 11:19:21 HEAVY TRUCK TECHNICIAN by Juan R Grubbs [email or web address] <ELECTRONICALLY SIGNED> By: Juan R Grubbs MD, [facility] 09/23/21 1119 0858 0858 JuanR Grubbs MD, [facility] /EPI
[2021-09-23 12:52] LABS: URINE BILIRUBIN NEGATIVE (Negative); URINE BLOOD NEGATIVE (Negative); URINE CLARITY CLEAR; URINE COLOR YELLOW; URINE GLUCOSE-RANDOM NEGATIVE (Negative); URINE KETONES NEGATIVE (Negative); URINE LEUKOCYTES-REFLEX NEGATIVE (Negative); URINE NITRITE-REFLEX NEGATIVE (Negative); URINE PROTEIN NEGATIVE (Negative); URINE UROBILINOGEN 0.2 E.U./dl (0.2-1.0)
[2021-09-23 12:53] LABS: ABSOLUTE BASOPHILS 0.1 thou/uL (0.0-0.2); ABSOLUTE EOSINOPHILS 0.1 thou/uL (0.0-0.7); ABSOLUTE LYMPHOCYTES 1.9 thou/uL (0.8-5.3); ABSOLUTE MONOCYTES 0.4 thou/uL (0.0-1.2); ABSOLUTE NEUTROPHILS 3.6 thou/uL (1.6-8.1); EOSINOPHILS 1.1 %; HEMATOCRIT 44.1 % (37.0-47.0); HEMOGLOBIN 14.6 gm/dL (12.0-15.0); LYMPHOCYTES 31.5 %; MCH 28.6 pg (26.0-34.0); MCHC 33.2 g/dL (28.0-37.0); MCV 86.2 fL (80.0-100.0); MONOCYTES 6.9 %; MPV 8.7 fl. (7.2-11.1); NUCLEATED RBCS 0 /100WBC; PLATELET COUNT* 155 thou/uL (150-400); POLYS 59.5 %; RBC 5.11 mil/uL (4.20-5.00); RDW-CV 14.1 % (10.5-14.5); WBC 6.1 thou/uL (4.0-11.0)
[2021-09-23 13:06] LABS: CALCIUM 9.5 mg/dL (8.5-10.1); CREATININE 0.6 mg/dL (0.6-1.3); POTASSIUM 3.7 mmol/L (3.5-5.1)
[2021-09-23 13:10] LABS: ALBUMIN 4.1 g/dL (3.4-5.0); TOTAL BILIRUBIN 0.4 mg/dL (<0.1-1.0); TOTAL PROTEIN 7.8 g/dL (6.4-8.2)
[2021-09-23 18:11] VITALS: BP 111/65
[2021-09-23 21:50] VITALS: BP 109/70; BP 135/78
[2021-09-24] VITALS: BP 152/80
[2021-09-24 04:00] VITALS: BP 122/62
[2021-09-24 08:46] VITALS: BP 135/75
[2021-09-24 09:08] LABS: ABSOLUTE EOSINOPHILS 0.1 thou/uL (0.0-0.7); ABSOLUTE LYMPHOCYTES 1.6 thou/uL (0.8-5.3); ABSOLUTE MONOCYTES 0.4 thou/uL (0.0-1.2); ABSOLUTE NEUTROPHILS 3.4 thou/uL (1.6-8.1); BASOPHILS 0.9 %; EOSINOPHILS 1.5 %; HEMATOCRIT 43.5 % (37.0-47.0); HEMOGLOBIN 14.2 gm/dL (12.0-15.0); MCH 28.3 pg (26.0-34.0); MCHC 32.6 g/dL (28.0-37.0); MCV 86.9 fL (80.0-100.0); MONOCYTES 7.1 %; MPV 8.5 fl. (7.2-11.1); NUCLEATED RBCS 0 /100WBC; PLATELET COUNT* 148 thou/uL (150-400); POLYS 61.5 %; RBC 5.01 mil/uL (4.20-5.00); WBC 5.6 thou/uL (4.0-11.0)
[2021-09-24 10:09] LABS: ALBUMIN 3.5 g/dL (3.4-5.0); CALCIUM 8.6 mg/dL (8.5-10.1); CREATININE 0.6 mg/dL (0.6-1.3); PHOSPHORUS* 3.6 mg/dL (2.5-4.9); POTASSIUM 4.1 mmol/L (3.5-5.1); TOTAL BILIRUBIN 0.4 mg/dL (<0.1-1.0)
[2021-09-24 12:35] VITALS: BP 144/82
[2021-09-24 14:17] VITALS: BP 144/82
--- NOTE | 2021-09-24 14:22 | NUR ---
WENT OVER DISCHARGE INSTRUCTIONS WITH PT. PT GIVEN INSTRUCTIONS FOR ORTHO FOLLOW UP OUT PT. VERBALIZES UNDERSTANDING OF ALL INSTRUCTIONS. IV AND TELE REMOVED.
== END 2021-09-24 14:28 | disposition home or self-care (01) ==
LOC: M.ERS 08:45 → M.TBA-ER 14:04 → M.2W 21:39
PROVIDERS: Physician Assistant; ADMIT Internal Medicine; ATTEND Internal Medicine
DX: M25.511 Pain in right shoulder (principal); Z20.822 Contact with and (suspected) exposure to COVID-19; I10 Essential (primary) hypertension; I25.10 Atherosclerotic heart disease of native coronary artery without angina pectoris; I25.2 Old myocardial infarction; I48.91 Unspecified atrial fibrillation; E78.5 Hyperlipidemia, unspecified; Z79.82 Long term (current) use of aspirin; Z79.899 Other long term (current) drug therapy; Z95.818 Presence of other cardiac implants and grafts; Z87.891 Personal history of nicotine dependence